=== PATIENT | female | born 1985 | race African-American/Black ===

== ENCOUNTER → 2017-04-03 | Outpatient (CLI) | payer OTHER ==
--- NOTE | 2017-04-03 11:36 | REP ---
ULTRASOUND RIGHT BREAST: CLINICAL HISTORY: Palpable abnormality lateral to right breast 10 to 11-o'clock position. Real-time sonographic evaluation just lateral to the right breast at 10 to 11-o'clock position demonstrates a band of hypodense tissue, which measures 1.5 x 0.2 x 1.7 cm. This appears to represent a band of fibroglandular tissue extending at the far superior-lateral aspect of the right breast. No suspicious cystic or solid mass is seen. IMPRESSION: ACR 2 benign. Palpable abnormality right superolateral breast soft tissues, just lateral to the margin of the breast, demonstrates a band of apparent fibroglandular tissue in this region. It is quite elongated and does not have a mass-like appearance. Clinical correlation and followup recommended. Signed by Manish Villarreal MD 04/03/2017 05:55 P
== END ==
LOC: M RAD 09:48
PROVIDERS: ATTEND Midwife
DX: N60.31 Fibrosclerosis of right breast (principal)

== ENCOUNTER 2017-10-26 09:17 | Emergency (ER) | payer OTHER ==
[2017-10-26] MEDS: CYCLOBENZAPRINE 10 MG TAB PO (09:41)
[2017-10-26] MEDS: PERCOCET 5MG/325MG TAB PO (09:41)
== END 2017-10-26 11:02 | disposition home or self-care (01) ==
LOC: M ED 09:17
DX: M54.5 Low back pain (principal); I73.00 Raynaud's syndrome without gangrene; F17.200 Nicotine dependence, unspecified, uncomplicated
CPT/HCPCS: 99283

== ENCOUNTER → 2017-11-27 | Outpatient (CLI) | payer OTHER | LOC: M RAD 08:44 | DX: M51.27 Other intervertebral disc displacement, lumbosacral region (principal) | CPT/HCPCS: 72148 ==